=== PATIENT | male | born 1945 | race Two or more races ===

== ENCOUNTER 2019-11-08 13:35 | Outpatient (CLI) | payer OTHER | END 2019-11-08 13:40 | disposition home or self-care (01) | LOC: LAB 13:35 | PROVIDERS: ATTEND Urology | DX: R97.20 Elevated prostate specific antigen [PSA] (principal) ==

== ENCOUNTER 2019-12-07 07:22 | Outpatient (CLI) | payer OTHER | END 2019-12-07 07:31 | disposition home or self-care (01) | LOC: SONOGRAMA 07:22 | PROVIDERS: ATTEND Urology | DX: R97.20 Elevated prostate specific antigen [PSA] (principal) ==